=== PATIENT | female | born 1955 | race Hispanic/Latino ===

== ENCOUNTER 2020-05-17 12:07 | Outpatient (CLI) | payer MEDICARE, SELFPAY ==
[2020-05-17 12:53] LABS: Alanine Aminotransferase 24 U/L (4-35); Aspartate Amino Transferase 35 U/L (14-36)
== END 2020-05-17 12:08 | disposition home or self-care (01) ==
PROVIDERS: PCP Family Medicine; Visit Provider Podiatrist Foot & Ankle Surgery
DX: B35.1 Tinea unguium (principal)
CPT/HCPCS: 36415; 84450; 84460

== ENCOUNTER 2020-07-01 16:09 | Outpatient (CLI) | payer MEDICARE, SELFPAY ==
--- NOTE | ~2020-07-01 | XR_ITS ---
EXAMINATION: XR_CERV2-3V_CR DATE: 07/01/2020 16:36 INDICATION: Right neck pain. TECHNIQUE: 4 views of the cervical spine were obtained. COMPARISON: None. FINDINGS: Bone alignment is normal. Vertebral body height are normal. There is mildly decreased disc height at C4-C5, C5-C6, and C6-C7. There is multilevel mild facet joint osteoarthritis. No central ca nal stenosis or prevertebral soft tissue swelling. IMPRESSION: 1. Mild cervical spondylosis. Reviewed, dictated and finalized at location A.
== END 2020-07-01 16:10 | disposition home or self-care (01) ==
PROVIDERS: PCP Family Medicine; Visit Provider Physician Assistant
DX: M47.892 Other spondylosis, cervical region (principal)
CPT/HCPCS: 72040

== ENCOUNTER 2020-08-11 08:14 | Outpatient (CLI) | payer MEDICARE, SELFPAY ==
--- NOTE | ~2020-08-11 | DEXA_ITS ---
Bone Density Report Name: Renita Celeste Age: 65 Sex: Female Ethnicity: Date of : 1955 Indication: postmenopausal osteoporosis; monitoring treatment; height loss; hysterectomy; Referring Provider: Katy Beavers Study: Bone densitometry was performed. Exam Date: August 11, 2020 Accession number: [id number] Bone Density: Region BMD T-score Z-score Classification AP Spine (L1-L4) 0.723 -2.9 -1.0 Osteoporosis Femoral Neck (Left) 0.579 -2.4 -0.9 Osteopenia Total Hip (Left) 0.654 -2.4 -1.0 Osteopenia Total Hip Bilateral Avg 0.646 -2.5 -1.1 Osteoporosis Femoral Neck (Right) 0.606 -2.2 -0.7 Osteopenia Total Hip (Right) 0.637 -2.5 -1.2 Osteoporosis World Health Organization criteria for BMD impression classify patients as: Normal (T-score at or above -1.0), Osteopenia (T-score between -1.0 and -2.5), or Osteoporosis (T-score at or below -2.5). 10-year Fracture Risk: FRAX not reported because: Some T-score for Spine Total or Hip Total or Femoral Neck at or below -2.5 Treated for osteoporosis Previous Exams: Region Exam Age BMD T-score BMD Change BMD Change Date g/cm2 vs Baseline vs Previous AP Spine(L1-L4) 08/11/2020 65 0.723 -2.9 0.000(0.0%)# -0.053(-6.8%)# 10/02/2013 58 0.776 -2.5 0.052(7.3%)# 0.026(3.4%)* 06/11/2012 57 0.750 -2.7 0.027(3.7%)# 0.022(3.1%)# 05/05/2010 55 0.727 -2.9 0.004(0.6%) 0.004(0.6%) 02/03/2009 53 0.723 -2.9 Total Hip(Left) 08/11/2020 65 0.654 -2.4 0.009(1.5%)# -0.051(-7.3%)# 10/02/2013 58 0.705 -1.9 0.061(9.4%)# -0.009(-1.2%) 06/11/2012 57 0.714 -1.9 0.069(10.8%)# 0.067(10.4%)# 05/05/2010 55 0.647 -2.4 0.002(0.3%) 0.002(0.3%) 02/03/2009 53 0.645 -2.4 Total Hip(Right) 08/11/2020 65 0.637 -2.5 -0.014(-2.2%)# -0.081(-11.3%) 10/02/2013 58 0.718 -1.8 0.067(10.2%)# 0.017(2.4%) 06/11/2012 57 0.701 -2.0 0.049(7.6%)# 0.084(13.7%)# 05/05/2010 55 0.616 -2.7 -0.035(-5.4%)* -0.035(-5.4%)* 02/03/2009 53 0.651 -2.4 *Denotes significance at 95% confidence level, LSC for AP Spine = 0.022 g/cm2, LSC for Total Hip = 0.027 g/cm2 Clinical Information Provided by Patient: Is being treated for osteoporosis Has used the following medications: Prolia (i.e. denosumab) Has the following medical conditions: Hysterectomy Patient maximum height was 62.5 Menopause Age: 45 Onset of menses at age 14 Number of children 1
--- NOTE | ~2020-08-11 | MM_ITS ---
EXAMINATION: MM screening [facility] BI w rsoi HISTORY: Screening TECHNIQUE: Craniocaudal and mediolateral oblique 3-D tomosynthesis images were obtained and synthetic 2-D images were generated. CAD analysis was submitted and interpreted. COMPARISON: Comparison to multiple prior studies sequentially, with oldest reviewed study dated 06/20. BREAST PARENCHYMAL COMPOSITION: There are scattered areas of fibroglandular density. FINDINGS: There is no evidence of suspicious mass, calcification, or architectural distortion to sugg est malignancy in either breast. There has been no suspicious interval change. IMPRESSION: 1. No mammographic evidence of malignancy. 2. Recommend routine screening mammography in one year. BI-RADS Category 1: Negative Reviewed, dictated and finalized at location A.
== END 2020-08-11 08:15 | disposition home or self-care (01) ==
LOC: ANHIMG 08:16
PROVIDERS: PCP Internal Medicine Endocrinology, Diabetes & Metabolism; Visit Provider Internal Medicine Endocrinology, Diabetes & Metabolism
DX: Z12.31 Encounter for screening mammogram for malignant neoplasm of breast (principal); M81.0 Age-related osteoporosis without current pathological fracture; E03.9 Hypothyroidism, unspecified; Z78.0 Asymptomatic menopausal state
CPT/HCPCS: 77063; 77067; 77080

== ENCOUNTER → 2020-10-14 14:09 | Outpatient (CLI) | payer MEDICARE, SELFPAY ==
--- NOTE | ~2020-10-14 | MR_ITS ---
EXAMINATION: MR cervical spine wo [facility] EXAM DATE: 10/14/2020 14:44 INDICATION: neck pain neck pain TECHNIQUE: Multi-sequential, multiplanar MR images of the cervical spine were obtained without contra st. Axial T2, axial T2 MERGE sequence. Sagittal T1, T2, T2 fat saturation images also obtained. Th ere is no prior study for comparison. FINDINGS: Mild to moderate disc disease C4-7. The vertebral bodies are aligned in the AP dimension. The spinal cord signal intensity and intrinsic morphology is normal. Cervicomedullary junction is nor mal in appearance. There are no suspicious marrow signal abnormalities. Paraspinal soft tissue is unr emarkable. Level by level evaluation: C2-C3: Disc does not extend beyond the endplate margin. Uncovertebral joint arthropathy: None. Facet joint arthropathy: Mild to moderate left. Neural foraminal stenosis: No stenosis. Central canal stenosis: No stenosis. C3-C4: Disc does not extend beyond the endplate margin. Uncovertebral joint arthropathy: Mild left. Facet joint arthropathy: Mild to moderate bilateral. Neural foraminal stenosis: No stenosis. Central canal stenosis: No stenosis. C4-C5: There is a minimal diffuse disc bulge. Uncovertebral joint arthropathy: Minimal bilateral. Facet joint arthropathy: Mild to moderate bilateral. Neural foraminal stenosis: Mild bilateral. Central canal stenosis: Minimal. C5-C6: There is a minimal diffuse disc bulge. Uncovertebral joint arthropathy: Mild bilateral. Facet joint arthropathy: Mild to moderate bilateral. Neural foraminal stenosis: No stenosis. Central canal stenosis: Minimal. C6-C7: There is a mild diffuse disc bulge. Uncovertebral joint arthropathy: Mild bilateral. Facet joint arthropathy: Mild. Neural foraminal stenosis: No stenosis. Central canal stenosis: Minimal. C7-T1: Disc does not extend beyond the endplate margin. Uncovertebral joint arthropathy: None. Facet joint arthropathy: Mild bilateral. Neural foraminal stenosis: No stenosis. Central canal stenosis: No stenosis. IMPRESSION: 1. Mild to moderate cervical spondylosis. Reviewed, dictated and finalized at location A. T TECH
== END ==
PROVIDERS: PCP Family Medicine
DX: M89.8X1 Other specified disorders of bone, shoulder (principal); M47.892 Other spondylosis, cervical region
CPT/HCPCS: 72141

== ENCOUNTER 2021-11-28 15:52 | Outpatient (CLI) | payer MEDICARE, SELFPAY ==
--- NOTE | ~2021-11-28 | MM_ITS ---
EXAMINATION: MM screening [facility]iana BI w rosi HISTORY: Screening TECHNIQUE: Craniocaudal and mediolateral oblique 3-D tomosynthesis images were obtained and synthetic 2-D images were generated. CAD analysis was submitted and interpreted. COMPARISON: Comparison to multiple prior studies sequentially, with oldest reviewed study dated 06/20. BREAST PARENCHYMAL COMPOSITION: Breast composed of scattered areas of fibroglandular density. FINDINGS: There is no evidence of suspicious mass, calcification, or architectural distortion to sugg est malignancy in either breast. There has been no suspicious interval change. IMPRESSION: 1. No mammographic evidence of malignancy. 2. Recommend routine screening mammography in one year. BI-RADS Category 1: Negative Reviewed, dictated and finalized at location A. N MARKETER
== END 2021-11-28 15:53 | disposition home or self-care (01) ==
LOC: ANHIMG 15:53
PROVIDERS: PCP Family Medicine; Visit Provider Family Medicine
DX: Z12.31 Encounter for screening mammogram for malignant neoplasm of breast (principal)
CPT/HCPCS: 77063; 77067

== ENCOUNTER 2022-01-03 08:37 | Outpatient (CLI) | payer MEDICARE, SELFPAY ==
[2022-01-03 09:26] LABS: Hemoglobin 12.3 g/dL (12.0-15.0); Mean Corpuscular HGB Conc 34.2 g/dl (32-36); Mean Corpuscular Hemoglobin 31.2 pg (26-34); Mean Corpuscular Volume 91.4 fl (80-100); Mean Platelet Volume 9.7 fl (7.4-10.4); Platelet Count Result 237 k/mm3 (150-375); Red Blood Count 3.94 M/mm3 (4.2-5.4); Red Cell Distribution Width 12.4 % (11.5-14.5); White Blood Count 5.6 K/mm3 (4.5-10.0)
[2022-01-03 09:40] LABS: Alanine Aminotransferase 39 U/L (4-35); Albumin Level 4.3 g/dL (3.5-5.1); Alkaline Phosphatase 67 U/L (38-126); Anion Gap 6 mmol/L (8-16); Aspartate Amino Transferase 44 U/L (14-36); Blood Urea Nitrogen 14 mg/dL (7-17); Calcium 9.9 mg/dL (8.4-10.2); Carbon Dioxide 26 mmol/L (22-30); Chloride 102 mmol/L (98-107); Cholesterol 244 mg/dL (0-200); Estimated Glomerular Filt Rate > 60; Glucose 94 mg/dL (65-110); HDL Direct 54 mg/dL; Potassium 4.2 mmol/L (3.4-5.0); Sodium 134 mmol/L (137-145); Triglycerides 157 mg/dL (<150)
[2022-01-03 09:50] LABS: LDL Cholesterol Direct 133 mg/dL
[2022-01-03 10:59] LABS: Vitamin D 25 Hydroxy 45.4 ng/mL
[2022-01-03 11:13] LABS: Thyroid Stimulating Hormone Reflex 0.584 uIU/mL (0.465-4.68)
== END 2022-01-03 08:38 | disposition home or self-care (01) ==
LOC: ANHLAB 08:39
PROVIDERS: PCP Family Medicine; Visit Provider Family Medicine
DX: R53.83 Other fatigue (principal); E78.2 Mixed hyperlipidemia; E55.9 Vitamin D deficiency, unspecified
CPT/HCPCS: 36415; 80053; 80061; 82306; 84443; 85027

== ENCOUNTER 2022-01-11 08:14 | Outpatient (CLI) | payer MEDICARE, SELFPAY ==
--- NOTE | ~2022-01-11 | US_ITS ---
US abdomen limited INDICATION: Elevated liver enzymes PROCEDURE: Realtime right upper abdominal ultrasound. COMPARISON: No prior studies for comparison. FINDINGS: The pancreas is normal without focal mass or pancreatic ductal dilation. Liver echotexture is normal without focal mass or intrahepatic biliary dilatation. There is normal directional flow i n the portal vein. The gallbladder is normal without stones, gallbladder wall thickening or pericholecystic fluid. Comm on bile duct measures 6 mm. No sonographic Koehler's sign. IMPRESSION: 1: Normal limited abdominal ultrasound. Reviewed, dictated and finalized at location B.
== END 2022-01-11 08:15 | disposition home or self-care (01) ==
LOC: ANHIMG 08:15
PROVIDERS: PCP Family Medicine; Visit Provider Physician Assistant
DX: R79.89 Other specified abnormal findings of blood chemistry (principal)
CPT/HCPCS: 76705

== ENCOUNTER 2022-01-27 12:09 | Outpatient (CLI) | payer MEDICARE, SELFPAY ==
[2022-01-27 14:02] LABS: Free T4 Free Thyroxine 1.22 ng/mL (0.78-2.19)
== END 2022-01-27 12:10 | disposition home or self-care (01) ==
LOC: ANHLAB 12:12
PROVIDERS: PCP Family Medicine; Visit Provider Internal Medicine Endocrinology, Diabetes & Metabolism
DX: E03.9 Hypothyroidism, unspecified (principal)
CPT/HCPCS: 36415; 84439; 84443

== ENCOUNTER 2022-03-08 15:47 | Outpatient (CLI) | payer MEDICARE, SELFPAY ==
--- NOTE | ~2022-03-08 | MR_ITS ---
EXAMINATION: MR cervical spine wo con DATE: 03/08/2022 16:32 INDICATION: Neck pain. TECHNIQUE: Magnetic resonance imaging (MRI) of the cervical spine was performed without intravenous c ontrast. Sequences included sagittal T2-weighted FSE, sagittal T2-weighted FS FSE, sagittal T1-weight ed FSE, axial MERGE, and axial T2-weighted FSE. COMPARISON: Cervical spine MRI 10/14/2020 FINDINGS: Motion artifact is noted. Bone alignment is normal. Vertebral body heights are normal. Ther e is mildly decreased disc height at C3-C4 and moderately decreased disc height from C4-C5 through C6 -C7. The spinal cord signal intensity is normal. The following disc levels are specifically discussed : C2-C3: The disc does not extend beyond the endplate margin. There is no uncovertebral joint osteoarth ritis. There is mild bilateral facet joint osteoarthritis. There is no neural foraminal stenosis. The re is no central canal stenosis. C3-C4: There is a central extrusion. There is mild bilateral uncovertebral joint osteoarthritis. Ther e is mild right and severe left facet joint osteoarthritis. There is mild left neural foraminal steno sis. There is no central canal stenosis. C4-C5: The disc is bulging. There is moderate right and mild left uncovertebral joint osteoarthritis. There is severe right and mild left facet joint osteoarthritis. There is mild bilateral neural daphne inal stenosis. There is mild central canal stenosis. C5-C6: The disc is bulging. There is mild bilateral uncovertebral joint osteoarthritis. There is mode rate right and severe left facet joint osteoarthritis. There is mild left neural foraminal stenosis. There is mild central canal stenosis. C6-C7: The disc is bulging. There is mild right and moderate left uncovertebral joint osteoarthritis. There is moderate bilateral facet joint osteoarthritis. There is no neural foraminal stenosis. There is no central canal stenosis. C7-T1: The disc does not extend beyond the endplate margin. There is no uncovertebral joint osteoarth ritis. There is moderate right and severe left facet joint osteoarthritis. There is mild left neural foraminal stenosis. There is no central canal stenosis. IMPRESSION: 1. Moderate cervical spondylosis, stable from 10/14/2020. Reviewed, dictated and finalized at location A.
== END 2022-03-08 15:48 | disposition home or self-care (01) ==
PROVIDERS: PCP Family Medicine; Visit Provider Physical Medicine & Rehabilitation
DX: M47.892 Other spondylosis, cervical region (principal)
CPT/HCPCS: 72141

== ENCOUNTER → 2022-03-29 09:47 | Outpatient (CLI) | payer MEDICARE, SELFPAY ==
--- NOTE | ~2022-03-29 | XR_ITS ---
EXAMINATION: XR thoracic spine 3V DATE: 03/29/2022 10:01 INDICATION: Thoracic back pain TECHNIQUE: AP, lateral and lateral swimmer's views of the thoracic spine were obtained. COMPARISON: None. FINDINGS: Bone alignment is normal. There is no fracture. The vertebral body heights are maintained. There is mild loss of intervertebral disc space height in the mid and upper thoracic spine. The visua lized portions of the lungs are clear. The cardiomediastinal silhouette is normal. IMPRESSION: 1. Mild thoracic spondylosis without acute findings. Reviewed, dictated and finalized at location F.
== END ==
PROVIDERS: PCP Family Medicine; Visit Provider Physician Assistant
DX: M47.814 Spondylosis without myelopathy or radiculopathy, thoracic region (principal)
CPT/HCPCS: 72072

== ENCOUNTER 2022-08-15 09:03 | Outpatient (CLI) | payer MEDICARE, SELFPAY ==
--- NOTE | ~2022-08-15 | DEXA_ITS ---
Bone Density Report Name: GLORIA RAVI Age: 67 Sex: Female Ethnicity: Date of : 1955 Indication: postmenopausal osteoporosis; monitoring treatment; hysterectomy; Referring Provider: SHAZIA HAIR Study: Bone densitometry was performed. Exam Date: August 15, 2022 Accession number: [id number] Bone Density: Region BMD T-score Z-score Classification AP Spine(L1-L4) 0.738 -2.8 -0.7 Osteoporosis Femoral Neck (Left) 0.576 -2.5 -0.8 Osteoporosis Total Hip (Left) 0.648 -2.4 -0.9 Osteopenia Femoral Neck (Right) 0.609 -2.2 -0.5 Osteopenia Total Hip (Right) 0.656 -2.3 -0.9 Osteopenia Total Hip Mean 0.652 -2.4 -0.9 Osteopenia World Health Organization criteria for BMD impression classify patients as: Normal (T-score at or above -1.0), Osteopenia (T-score between -1.0 and -2.5), or Osteoporosis (T-score at or below -2.5). 10-year Fracture Risk: FRAX not reported because: Some T-score for Spine Total or Hip Total or Femoral Neck at or below -2.5 Treated for osteoporosis Previous Exams: Region Exam Age BMD T-score BMD Change BMD Change Date g/cm2 vs Baseline vs Previous AP Spine (L1-L4) 08/15/2022 67 0.738 -2.8 0.015 (2.1%) 0.015 (2.1%) 08/11/2020 65 0.723 -2.9 Total Hip(Left) 08/15/2022 67 0.648 -2.4 -0.006 (-0.9%) -0.006 (-0.9%) 08/11/2020 65 0.654 -2.4 Total Hip(Right) 08/15/2022 67 0.656 -2.3 0.019 (3.0%) 0.019 (3.0%) 08/11/2020 65 0.637 -2.5 *Denotes significance at 95% confidence level, LSC for AP Spine = 0.022 g/cm2, LSC for Total Hip = 0.027 g/cm2 Clinical Information Provided by Patient: Is being treated for osteoporosis Has used the following medications: Prolia (i.e. denosumab) Has the following medical conditions: Hysterectomy Patient maximum height was 62 Menopause Age: 45 Onset of menses at age 14 Number of children 1 Impression: The patient has osteoporosis, based on the Total Spine T-score. No significant bone loss was observed. Discussion: PATIENT UNDER TREATMENT WITH NO SIGNIFICANT BMD LOSS SINCE LAST EXAM. In an untreated patient, BMD typically declines with age. A lack of decline or gain is usually a sign that treatment is efficacious and fracture risk is reduced. It is important to ask patients whether they are taking their medications and to encourage continued and appropriate compliance with their osteoporosis therapies to reduce fracture risk. It is also important to r
== END 2022-08-15 09:04 | disposition home or self-care (01) ==
PROVIDERS: PCP Family Medicine; Visit Provider Internal Medicine Endocrinology, Diabetes & Metabolism
DX: M81.0 Age-related osteoporosis without current pathological fracture (principal); M85.852 Other specified disorders of bone density and structure, left thigh; M85.851 Other specified disorders of bone density and structure, right thigh
CPT/HCPCS: 77080

== ENCOUNTER 2023-03-08 07:59 | Outpatient (CLI) | payer MEDICARE, SELFPAY ==
[2023-03-08 08:53] LABS: Alanine Aminotransferase 24 U/L (6-35); Albumin Level 4.5 g/dL (3.5-5.1); Alkaline Phosphatase 73 U/L (38-126); Anion Gap 4 mmol/L (8-16); Aspartate Amino Transferase 36 U/L (14-36); Bilirubin,Total 0.9 mg/dL (0.2-1.3); Blood Urea Nitrogen 20 mg/dL (7-17); Carbon Dioxide 28 mmol/L (22-30); Chloride 102 mmol/L (98-107); Cholesterol 251 mg/dL (0-200); Estimated Glomerular Filt Rate > 60; Glucose 90 mg/dL (65-110); HDL Direct 63 mg/dL; Potassium 3.9 mmol/L (3.4-5.0); Sodium 134 mmol/L (137-145); Triglycerides 116 mg/dL (<150)
[2023-03-08 08:59] LABS: Hemoglobin 12.5 g/dL (12.0-15.0); Mean Corpuscular HGB Conc 33.8 g/dl (32-36); Mean Corpuscular Hemoglobin 30.6 pg (26-34); Mean Corpuscular Volume 90.5 fl (80-100); Mean Platelet Volume 9.6 fl (7.4-10.4); Platelet Count Result 264 k/mm3 (150-375); Red Blood Count 4.09 M/mm3 (4.2-5.4); Red Cell Distribution Width 12.4 % (11.5-14.5); White Blood Count 5.1 K/mm3 (4.5-10.0)
[2023-03-08 09:06] LABS: LDL Cholesterol Direct 141 mg/dL
== END 2023-03-08 08:00 | disposition home or self-care (01) ==
PROVIDERS: PCP Family Medicine; Visit Provider Family Medicine
DX: R53.83 Other fatigue (principal); E78.2 Mixed hyperlipidemia; E03.9 Hypothyroidism, unspecified; E55.9 Vitamin D deficiency, unspecified
CPT/HCPCS: 36415; 80053; 80061; 82306; 84443; 85027

== ENCOUNTER 2023-03-20 08:47 | Outpatient (CLI) | payer MEDICARE, SELFPAY ==
--- NOTE | ~2023-03-20 | MM_ITS ---
EXAMINATION: MM screening [facility] BI w rosi HISTORY: Screening mammogram TECHNIQUE: Craniocaudal and mediolateral oblique 3-D tomosynthesis images were obtained and synthetic 2-D images were generated. CAD analysis was submitted and interpreted. COMPARISON: 11/28/2021, 08/11/2020, 07/15/2019 BREAST PARENCHYMAL COMPOSITION: There are scattered areas of fibroglandular density. FINDINGS: No suspicious mass, calcification, or architectural distortion are identified in either lexy ast to suggest malignancy. There has been no suspicious interval change. IMPRESSION: 1. No mammographic evidence of malignancy. 2. Recommend routine screening mammography in one year. BI-RADS Category 1: Negative Reviewed, dictated and finalized at location A.
== END 2023-03-20 08:48 | disposition home or self-care (01) ==
PROVIDERS: PCP Family Medicine; Visit Provider Family Medicine
DX: Z12.31 Encounter for screening mammogram for malignant neoplasm of breast (principal)
CPT/HCPCS: 77063; 77067

== ENCOUNTER 2024-03-13 07:39 | Outpatient (CLI) | payer MEDICARE, SELFPAY ==
[2024-03-13 09:11] LABS: Basophils Absolute Auto 0.1 K/mm3 (0.0-0.1); Basophils Percent Auto 1.4 % (0.2-1.2); Eosinophils Absolute Auto 0.2 K/mm3 (0-0.3); Eosinophils Percent Auto 3.6 % (0-4.4); Hematocrit 38.2 % (37.0-47.0); Hemoglobin 12.9 g/dL (12.0-15.0); Immature Granulocyte Absolute 0.01 K/mm3 (0.00-0.031); Immature Granulocyte Percent A 0.2 % (0-0.5); Lymphocytes Absolute Auto 2.83 K/mm3 (0.9-3.2); Lymphocytes Percent Auto 48.8 % (18.3-44.2); Mean Corpuscular HGB Conc 33.8 g/dl (32-36); Mean Corpuscular Hemoglobin 30.2 pg (26-34); Mean Corpuscular Volume 89.5 fl (80-100); Mean Platelet Volume 10.3 fl (7.4-10.4); Monocytes Absolute Auto 0.4 K/mm3 (0.1-0.6); Monocytes Percent Auto 7.2 % (2.6-8.5); Neutrophils Absolute Auto 2.3 K/mm3 (1.3-6.7); Neutrophils Percent Auto 38.8 % (45.5-73.1); Platelet Count Result 263 k/mm3 (150-375); Red Blood Count 4.27 M/mm3 (4.2-5.4); Red Cell Distribution Width 12.6 % (11.5-14.5); White Blood Count 5.8 K/mm3 (4.5-10.0)
[2024-03-13 09:25] LABS: Alanine Aminotransferase 20 U/L (6-35); Albumin Level 4.4 g/dL (3.5-5.1); Alkaline Phosphatase 74 U/L (38-126); Anion Gap 4 mmol/L (4-12); Aspartate Amino Transferase 35 U/L (14-36); Bilirubin,Total 1.1 mg/dL (0.2-1.3); Blood Urea Nitrogen 15 mg/dL (7-17); Calcium 10.1 mg/dL (8.4-10.2); Carbon Dioxide 28 mmol/L (22-30); Chloride 101 mmol/L (98-107); Cholesterol 230 mg/dL (0-200); Estimated Glomerular Filt Rate > 60; Glucose 89 mg/dL (65-110); HDL Direct 60 mg/dL; Sodium 133 mmol/L (137-145); Triglycerides 133 mg/dL (<150)
[2024-03-13 09:36] LABS: LDL Cholesterol Direct 135 mg/dL
== END 2024-03-13 07:40 | disposition home or self-care (01) ==
PROVIDERS: PCP Family Medicine; Visit Provider Family Medicine
DX: R53.83 Other fatigue (principal); E78.2 Mixed hyperlipidemia; Z00.00 Encounter for general adult medical examination without abnormal findings; M81.0 Age-related osteoporosis without current pathological fracture
CPT/HCPCS: 36415; 80053; 80061; 84443; 85025

== ENCOUNTER 2024-03-14 14:27 | Outpatient (CLI) | payer MEDICARE, SELFPAY ==
--- NOTE | ~2024-03-14 | XR_ITS ---
EXAMINATION: XR lumbar spine min 4V DATE: 03/14/2024 14:57 INDICATION: Left-sided low back pain. TECHNIQUE: 5 views of lumbar spine were obtained. COMPARISON: Lumbar spine radiographs 05/23/2018 FINDINGS: There is 6 degrees dextrocurvature of lumbar spine. Vertebral body heights are normal. Ther e is mildly decreased disc height at L2-L3 and L3-L4 with endplate remodeling. There is multilevel mi ld facet joint osteoarthritis. At L5-S1, there is severe right facet joint osteoarthritis. IMPRESSION: 1. Mild lumbar spondylosis. Reviewed, dictated and finalized at location E. IMPRESSION: 1. Mild lumbar spondylosis.
--- NOTE | ~2024-03-14 | XR_ITS ---
EXAMINATION: XR sacroiliac joints min 3V DATE: 03/14/2024 14:57 INDICATION: Sacrococcygeal disorders, not elsewhere classified. TECHNIQUE: 3 views of the sacroiliac joints were obtained. COMPARISON: Pelvis radiograph 10/20/2016 FINDINGS: Bone alignment is normal. No fracture. There is moderate right and mild left osteoarthritis of the sacroiliac joints. IMPRESSION: 1. 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 No evidence of inflammatory arthropathy. Reviewed, dictated and finalized at location E. IMPRESSION: 1. 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 No stephanie dence of inflammatory arthropathy.
== END 2024-03-14 14:28 | disposition home or self-care (01) ==
PROVIDERS: PCP Family Medicine; Visit Provider Family Medicine
DX: M43.06 Spondylolysis, lumbar region (principal); M53.3 Sacrococcygeal disorders, not elsewhere classified; G89.29 Other chronic pain
CPT/HCPCS: 72110; 72202

== ENCOUNTER 2024-05-26 15:00 | Outpatient (CLI) | payer MEDICARE, SELFPAY ==
--- NOTE | ~2024-05-26 | XR_ITS ---
EXAMINATION:XR cervical spine 4-5V DATE: 05/26/2024 15:18 INDICATION: One month of right-sided neck pain TECHNIQUE: AP, lateral, lateral swimmers and odontoid views of the cervical spine are provided. COMPARISON: 03/08/2022 FINDINGS: 1-2 mm anterolisthesis C4 on C5 and 1 mm anterolisthesis C7 on T1. Odontoid is intact. Normal atlant oaxial interval. Vertebral body heights are normal. Mild disc height loss at C3-C4 and C4-C5 and mode rate disc height loss at C5-C6 and C6-7. Mild to moderate cervical facet and uncovertebral osteoarthr itis. Prevertebral soft tissues are normal. Moderate biapical pleural-parenchymal scarring. IMPRESSION: 1. Moderate cervical spondylosis. Reviewed, dictated and finalized at location A.
== END 2024-05-26 15:01 ==
PROVIDERS: PCP Chiropractor; Visit Provider Family Medicine
DX: M47.892 Other spondylosis, cervical region (principal)
CPT/HCPCS: 72050

== ENCOUNTER 2024-06-14 07:28 | Outpatient (CLI) | payer MEDICARE, SELFPAY ==
[2024-06-14 08:00] LABS: Albumin Level 4.3 g/dL (3.5-5.1); Anion Gap 7 mmol/L (4-12); Blood Urea Nitrogen 16 mg/dL (7-17); Calcium 10.2 mg/dL (8.4-10.2); Carbon Dioxide 28 mmol/L (22-30); Chloride 98 mmol/L (98-107); Estimated Glomerular Filt Rate > 60; Glucose 92 mg/dL (65-110); Phosphorus 3.5 mg/dL (2.5-4.5); Potassium 4.1 mmol/L (3.4-5.0); Sodium 133 mmol/L (137-145)
[2024-06-14 09:53] LABS: Parathyroid Intact 38.7 pg/mL (14.5-75.2)
[2024-06-14 09:57] LABS: Vitamin D 25 Hydroxy 39.7 ng/mL
== END 2024-06-14 07:29 | disposition home or self-care (01) ==
PROVIDERS: PCP Family Medicine; Visit Provider Internal Medicine Endocrinology, Diabetes & Metabolism
DX: E03.9 Hypothyroidism, unspecified (principal); M81.0 Age-related osteoporosis without current pathological fracture; R79.89 Other specified abnormal findings of blood chemistry
CPT/HCPCS: 36415; 80069; 82306; 83970

== ENCOUNTER 2024-06-20 10:19 | Outpatient (CLI) | payer MEDICARE, SELFPAY ==
[2024-06-20 12:16] LABS: Total Volume 24 Hour Urine 1700 ml
[2024-06-20 12:26] LABS: Creatinine 24 Hour Urine 0.9 gm/24 (0.8-1.8); Creatinine Urine 57.1 mg/dL
[2024-06-24 11:04] LABS: Total Volume 1700 mL
== END 2024-06-20 10:20 | disposition home or self-care (01) ==
LOC: ANHLAB 10:25
PROVIDERS: PCP Family Medicine; Visit Provider Internal Medicine Endocrinology, Diabetes & Metabolism
DX: M81.0 Age-related osteoporosis without current pathological fracture (principal); R79.89 Other specified abnormal findings of blood chemistry; E03.9 Hypothyroidism, unspecified
CPT/HCPCS: 81050; 82340; 82570

== ENCOUNTER 2024-08-07 12:22 | Outpatient (CLI) | payer MEDICARE, SELFPAY ==
--- NOTE | ~2024-08-07 | XR_ITS ---
Right Shoulder Technique: AP and axillary views were obtained. Clinical History: Shoulder pain Findings: No fracture or dislocation is seen. Osseous alignment is anatomic. The glenohumeral and acr omioclavicular joint spaces are preserved. Soft tissues are unremarkable. Impression: Unremarkable right shoulder radiographs. Reviewed, dictated and finalized at [facility]. Impression: Unremarkable right shoulder radiographs.
== END 2024-08-07 12:23 | disposition home or self-care (01) ==
LOC: ANHIMG 12:24
PROVIDERS: PCP Family Medicine; Visit Provider Physical Medicine & Rehabilitation Pain Medicine
DX: M25.511 Pain in right shoulder (principal)
CPT/HCPCS: 73030

== ENCOUNTER 2024-08-25 09:26 | Outpatient (CLI) | payer MEDICARE, SELFPAY ==
--- NOTE | ~2024-08-25 | DEXA_ITS ---
Bone Density Report Name: GLORIA RAVI Age: 69 Sex: Female Ethnicity: Date of : 1955 Indication: postmenopausal osteoporosis; monitoring treatment; hysterectomy; Referring Provider: FATOU PEGUERO Study: Bone densitometry was performed. Exam Date: August 25, 2024 Accession number: [id number] Bone Density: Region BMD T-score Z-score Classification AP Spine(L1-L4) 0.740 -2.8 -0.6 Osteoporosis Femoral Neck (Left) 0.567 -2.5 -0.8 Osteoporosis Total Hip (Left) 0.649 -2.4 -0.8 Osteopenia Femoral Neck (Right) 0.609 -2.2 -0.4 Osteopenia Total Hip (Right) 0.655 -2.4 -0.7 Osteopenia Total Hip Mean 0.652 -2.4 -0.8 Osteopenia World Health Organization criteria for BMD impression classify patients as: Normal (T-score at or above -1.0), Osteopenia (T-score between -1.0 and -2.5), or Osteoporosis (T-score at or below -2.5). 10-year Fracture Risk: FRAX not reported because: Some T-score for Spine Total or Hip Total or Femoral Neck at or below -2.5 Treated for osteoporosis Previous Exams: Region Exam Age BMD T-score BMD Change BMD Change Date g/cm2 vs Baseline vs Previous AP Spine (L1-L4) 08/25/2024 69 0.740 -2.8 0.018 (2.4%) 0.003 (0.4%) 08/15/2022 67 0.738 -2.8 0.015 (2.1%) 0.015 (2.1%) 08/11/2020 65 0.723 -2.9 Total Hip(Left) 08/25/2024 69 0.649 -2.4 -0.005 (-0.8%) 0.001 (0.1%) 08/15/2022 67 0.648 -2.4 -0.006 (-0.9%) -0.006 (-0.9%) 08/11/2020 65 0.654 -2.4 Total Hip(Right) 08/25/2024 69 0.655 -2.4 0.018 (2.8%) -0.002 (-0.3%) 08/15/2022 67 0.656 -2.3 0.019 (3.0%) 0.019 (3.0%) 08/11/2020 65 0.637 -2.5 *Denotes significance at 95% confidence level, LSC for AP Spine = 0.022 g/cm2, LSC for Total Hip = 0.027 g/cm2 Clinical Information Provided by Patient: Is being treated for osteoporosis Has used the following medications: Prolia (i.e. denosumab) Has the following medical conditions: Hysterectomy Patient maximum height was 62 Menopause Age: 45 Onset of menses at age 14 Number of children 1 Impression: The patient has osteoporosis, based on the Total Spine T-score. No significant bone loss was observed. Discussion: PATIENT UNDER TREATMENT WITH NO SIGNIFICANT BMD LOSS SINCE LAST EXAM. In an untreated patient, BMD typically declines with age. A lack of decline or gain is usually a sign that treatment is efficacious and fracture risk is reduced. It is important to ask patients whether they are taking their medications and to encourage continued and appropriate compliance with their osteoporosis therapies to reduce fracture risk. It is also important to review their risk factors and encourage appropriate calcium and vitamin D intakes, exercise, fall prevention and other lifestyle measures. Follow-Up: Consider a repeat BMD and Vertebral Fracture Assessment (VFA) exam in 2 years or sooner if medically necessary, to reassess this patient's status. Reported by: HELEN on 08/25/2024 10:01:00 AM. Reviewed, dictated and finalized at location ABernadine COREY
== END 2024-08-25 09:27 | disposition home or self-care (01) ==
LOC: ANHIMG 09:35
PROVIDERS: PCP Family Medicine; Visit Provider Internal Medicine Endocrinology, Diabetes & Metabolism
DX: Z78.0 Asymptomatic menopausal state (principal); M81.0 Age-related osteoporosis without current pathological fracture; M85.852 Other specified disorders of bone density and structure, left thigh; M85.851 Other specified disorders of bone density and structure, right thigh
CPT/HCPCS: 77080

== ENCOUNTER 2024-08-28 14:21 | Outpatient (CLI) | payer MEDICARE, SELFPAY ==
--- NOTE | ~2024-08-28 | MM_ITS ---
EXAMINATION: MM screening [facility] BI w rosi HISTORY: Screening mammogram TECHNIQUE: Craniocaudal and mediolateral oblique 3-D tomosynthesis images were obtained and synthetic 2-D images were generated. CAD analysis was submitted and interpreted. COMPARISON: 03/20/2023, 11/28/2021, 08/11/2020 BREAST PARENCHYMAL COMPOSITION:Dense: The breasts are heterogeneously dense, which may obscure small masses. FINDINGS: No suspicious mass, calcification, or architectural distortion are identified in either lexy ast to suggest malignancy. There has been no suspicious interval change. IMPRESSION: No mammographic evidence of malignancy. Recommend routine screening mammography in one year. BI-RADS Category 1: Negative Reviewed, dictated and finalized at location .
== END 2024-08-28 14:22 | disposition home or self-care (01) ==
LOC: ANHIMG 14:22
PROVIDERS: PCP Family Medicine; Visit Provider Family Medicine
DX: Z12.31 Encounter for screening mammogram for malignant neoplasm of breast (principal)
CPT/HCPCS: 77063; 77067

== ENCOUNTER 2024-09-16 13:43 | Outpatient (CLI) | payer MEDICARE, SELFPAY ==
--- NOTE | ~2024-09-16 | MR_ITS ---
EXAMINATION: MR cervical spine wo con DATE: 09/16/2024 14:13 INDICATION: Neck pain. Spinal stenosis. TECHNIQUE: Magnetic resonance imaging (MRI) of the cervical spine was performed without intravenous c ontrast. COMPARISON: Cervical spine MRI 03/08/2022 FINDINGS: There is 2 mm anterolisthesis of C4 on C5. Vertebral body heights are normal. There is mild ly decreased disc height at C3-C4 and moderately decreased disc height at C4-C5, C5-C6, and C6-C7. Th e spinal cord signal intensity is normal. The following disc levels are specifically discussed: C2-C3: The disc does not extend beyond the endplate margin. There is no uncovertebral joint osteoarth ritis. There is mild right and moderate left facet joint osteoarthritis. There is no neural foraminal stenosis. There is no central canal stenosis. C3-C4: There is a central protrusion. There is mild bilateral uncovertebral joint osteoarthritis. The re is mild right and severe left facet joint osteoarthritis. There is mild left neural foraminal sten osis. There is no central canal stenosis. C4-C5: There is a central protrusion. There is moderate right and mild left uncovertebral joint osteo arthritis. There is severe right and moderate left facet joint osteoarthritis. There is mild right ne ural foraminal stenosis. There is mild central canal stenosis. C5-C6: The disc is bulging. There is mild right and moderate left uncovertebral joint osteoarthritis. There is mild right and severe left facet joint osteoarthritis. There is mild left neural foraminal stenosis. There is mild central canal stenosis. C6-C7: There is a central protrusion. There is moderate bilateral uncovertebral joint osteoarthritis. There is moderate bilateral facet joint osteoarthritis. There is no neural foraminal stenosis. There is mild central canal stenosis. C7-T1: The disc does not extend beyond the endplate margin. There is no uncovertebral joint osteoarth ritis. There is severe bilateral facet joint osteoarthritis. There is mild bilateral neural foraminal stenosis. There is no central canal stenosis. IMPRESSION: 1. Moderate cervical spondylosis, stable from 03/08/2022. Reviewed, dictated and finalized at location A. DOWN PLANNER
== END 2024-09-16 13:44 | disposition home or self-care (01) ==
LOC: GOSHIMG 13:43
PROVIDERS: PCP Family Medicine; Visit Provider Physical Medicine & Rehabilitation Pain Medicine
DX: M48.00 Spinal stenosis, site unspecified (principal); M47.892 Other spondylosis, cervical region
CPT/HCPCS: 72141

== ENCOUNTER 2025-04-03 08:58 | Outpatient (CLI) | payer MEDICARE, SELFPAY ==
--- OUTSIDE RECORDS SUMMARY | 2025-04-03 09:02 | XMS_ITS | Clinical Summary ---
Author Organization [facility] Physician Office Building [address] [place] [id number] Care Team Providers Care Mobile Application Developer Name Role Phone Cindi Ortiz MD Primary Care Provider [phone] Allergies No known active allergies Medications levothyroxine sodium (TIROSINT) 25 mcg capsule Take 25 mcg by mouth manager facility before breakfast. Active denosumab (PROLIA SUBQ) Inject under the skin Active citalopram (CeleXA) 40 mg tablet Take 40 mg by mouth daily Active omega-3 fatty acids-fish oil 300-1,000 mg capsule Take 2 g by mouth daily Active celecoxib (CeleBREX) 100 mg capsule Take 1 BID 60 capsule 07/21/2020 Active tiZANidine (ZANAFLEX) 2 mg tablet Take 1 every 8 hours PRN 45 tablet 07/21/2020 Active gabapentin (NEURONTIN) 300 mg capsule Take 1 at HS 30 capsule 11/04/2020 Active Active Problems Problem Noted Date Diagnosed Date Hematochezia 02/28/2019 Overview (02/28/2019): Added automatically from request for surgery [id number] Epigastric abdominal pain 02/28/2019 Overview (02/28/2019): Added automatically from request for surgery [id number] Surgical History Surgery Date Site/Laterality Comments CT LAPS ABD PRTM&OMENTUM DX W/WO SPEC BR/WA SPX Laparoscopy (Diagnostic) - 1990s (Added by TW Conv) ROTATOR CUFF REPAIR Rotator Cuff Repair - RIGHT (Added by TW Conv) TOTAL ABDOMINAL HYSTERECTOMY Total Abdominal Hysterectomy With Removal Of Both Ovaries - 04/2016 (Added by TW Conv) IR INJECTION ARTHROGRAM SI JOINT LEFT INCLUDES IMAGING GUIDANCE 12/24/2018 Left Medical History Medical History Date Comments 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, right - (Added by TW Conv) Anemia Anxiety Arthritis ADD (attention deficit disorder) Thyroid disease Hypothyroidism Family History Medical History Relation Name Comments Mental illness Daughter Epilepsy Father Family history of epilepsy - (Added by TW Conv) Mental illness Father Arthritis Mother Thyroid cancer Sister Family histor y of malignant neoplasm of thyroid - (Added by TW Conv) Relation Name Status Comments Daughter Father Mother Sister Social History Tobacco Use Types Packs/Day Years Used Date Smoking Tobacco: Never Smokeless Tobacco: Never Alcohol Use Standard Drinks/Week Comments Yes 0 (1 standard drink = 0.6 oz pur e alcohol) Comments No Sex and Gender Information Value Date Recorded Sex Assigned at Not on file 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 Gender Identity Not on file Sexual Orientation Not on file Occupation Industry Job Start Date Job End Date Teacher Not on file Not on file Not on file Obstetrics History Last Filed Vital Signs Vital Sign Reading Time Taken Comments Blood Pressure 98/58 04/15/2019 10:49 AM CDT Pulse 63 04/15/2019 10:49 AM CDT Temperature 36 C (96.8 F) 04/15/2019 10:16 AM CDT Respiratory Rate 15 04/15/2019 10:49 AM CDT Oxygen Saturation 94% 04/15/2019 10:49 AM CDT Inhaled Oxygen Concentration - - Weight 52.2 kg (115 lb) 07/21/2020 12:01 PM CDT Height 152.4 cm (5') 07/21/2020 12:01 PM CDT Body Mass Index 22.46 07/21/2020 12:01 PM CDT Plan of Treatment Not on file Insurance ADELAIDAAMALIA [employer]ICOTT PPO [facility] MDCR HMO REF [facility] MEDICARE Address: [address] [address] [place] [address] [facility] MEDICARE ADVANTAGE [facility] MEDICARE Address: [address] [address] [place] [address] Advance Directives For more information, please contact: [phone] * Full Code (Latest Code Status on File) Date Activated Date Inactivated Comments 04/15/2019 8:08 AM 04/15/2019 4:35 PM Care Teams Mobile Application Developer Relationship Specialty Start Date End Date Cindi Ortiz MD PCP - General Family Medicine 05/21/17
--- OUTSIDE RECORDS SUMMARY | 2025-04-03 09:02 | XMS_ITS | Referral Summary ---
Author Organization [facility] Physician Office Building [address] [place] [phone] Care Team Providers Care High Density Press Operator Name Role Phone Cindi Ortiz MD Primary Care Provider [phone] Allergies No known active allergies Medications levothyroxine sodium (TIROSINT) 25 mcg capsule Take 25 mcg by mouth dairy husbandry worker before breakfast. 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 Gender Identity Not on file Sexual Orientation Not on file Occupation Industry Job Start Date Job End Date Teacher Not on file Not on file Not on file Last Filed Vital Signs Vital Sign Reading [...] Plan of Treatment Not on file Insurance [employer] [place] PPO [facility] RE[facility] MEDICARE ADVANTAGE Advance Directives For more information, please contact: [phone] * Full Code (Latest Code Status on File) Date Activated Date Inactivated Comments 04/15/2019 8:08 AM 04/15/2019 4:35 PM Care Teams High Density Press Operator Relationship Specialty Start Date End Date Cindi Ortiz MD PCP - General Family Medicine 05/21/17
--- OUTSIDE RECORDS SUMMARY | 2025-04-03 09:02 | XMS_ITS | Clinical Summary ---
Author Organization [facility] Address [address] [place] [address] Care Team Providers Care School Psychological Examiner Name Role Phone Cindi Ortiz MD Primary Care Provider [phone] Source Comments [facility],non-owned Affiliates and Associated Physician Practices is amultiple site organization consisting of ambulatory clinics and hospital sitesin [place], [place], [place] and [place]. This disclosure is being madepursuant to the Care Everywhere program and may not contain all information available regarding this patient. Last updated 18.[facility] Allergies No known active allergies Medications * Be aware that medications may not be up to date on this document. Alwaysverify current medications with the patient. fluticasone propionate (FLONASE) 50 MCG/ACT nasal spray [place] 2 (two) sprays into each nostril once daily 1 g 12/17/2020 Active Social History Tobacco Use Types Packs/Day Years Used Date Smoking Tobacco: Never Smokeless Tobacco: Never Comments Unknown Sex and Gender Information Value Date Recorded Sex Assigned at Not on file Legal Sex Female 5:48 PM SOAP MIXER Gender Identity Not on file Sexual Orientation Not on file Last Filed Vital Signs Vital Sign Reading Time Taken Comments Blood Pressure 98/54 12/17/2020 4:59 PM SOAP MIXER Pulse 66 12/17/2020 4:59 PM SOAP MIXER Temperature 36.4 C (97.6 F) 12/17/2020 4:59 PM SOAP MIXER Respiratory Rate 16 12/17/2020 4:59 PM SOAP MIXER Oxygen Saturation 98% 12/17/2020 4:59 PM SOAP MIXER Inhaled Oxygen Concentration - - Weight 45.4 kg (100 lb) 12/17/2020 4:59 PM SOAP MIXER Height 149.9 cm (4' 11) 12/17/2020 4:59 PM SOAP MIXER Body Mass Index 20.2 12/17/2020 4:59 PM SOAP MIXER Plan of Treatment Health Maintenance Due Date Last Done Comments BONE DENSITY TESTING 1953 COLOGUARD (AGES 45-75) - COL ON CA SCREENING 1953 COLON MONITORING 1953 COLONOSCOPY - COLON CA SCREENING 1953 CT COLONOGRAPHY - COLON CA SCREENING 1953 Colorectal Cancer Screening 1955 FIT - COLON CA SCREENING 1953 FLEX SIG - COLON CA SCREENING 1953 LIPID TESTING 1953 MAMMOGRAM 1953 HEPATITIS C SCREENING 03/31/1971 DTAP/TDAP/TD VACCINES (1 - Tdap) 1972 PNEUMOCOCCAL VACCINE 50+ (1 of 1 - PCV) 2003 ZOSTER VACCINE (1 of 2) 2003 COVID-19 VACCINE (3 - 2023-2 5 season) 2024 01/19/2021, 12/28/2020 DEPRESSION SCREENING 10/29/2024 INFLUENZA VACCINE (Season Ended) 2025 08/17/2020, 09/05/2017, 09/03/2014 Respiratory Syncytial Virus (RSV) Vaccine Pt: or over 60 yrs (1 - 1-dose 75+ series) 2028 HEPATITIS B VACCINE Aged Out No longe r eligible based on patient's age to complete this topic HIB VACCINE Aged Out No longer eligi ble based on patient's age to complete this topic HPV VACCINE Aged Out No longer eligi ble based on patient's age to complete this topic MENINGOCOCCAL (Group B) VACCINE SHARED DECISION-MAKING Aged Out No longer eligible based on patient's age to complete this topic MENINGOCOCCAL GROUPS A/C/Y/W VACCINE Aged Out No longer eligible b ased on patient's age to complete this topic Insurance [id number] MANAGED MEDICARE ADV Care Teams School Psychological Examiner Relationship Specialty Start Date End Date Cindi Ortiz MD [address] [place] [address] PCP - General Family Medicine 12/17/20
[2025-04-03 12:12] LABS: Basophils Absolute Auto 0.1 K/mm3 (0.0-0.1); Basophils Percent Auto 1.6 % (0.2-1.2); Eosinophils Absolute Auto 0.3 K/mm3 (0-0.3); Eosinophils Percent Auto 4.7 % (0-4.4); Hematocrit 38.4 % (37.0-47.0); Hemoglobin 12.7 g/dL (12.0-15.0); Immature Granulocyte Absolute 0.01 K/mm3 (0.00-0.031); Immature Granulocyte Percent A 0.2 % (0-0.5); Lymphocytes Absolute Auto 2.89 K/mm3 (0.9-3.2); Lymphocytes Percent Auto 49.9 % (18.3-44.2); Mean Corpuscular HGB Conc 33.1 g/dl (32-36); Mean Corpuscular Hemoglobin 29.7 pg (26-34); Mean Corpuscular Volume 89.9 fl (80-100); Monocytes Absolute Auto 0.4 K/mm3 (0.1-0.6); Monocytes Percent Auto 7.1 % (2.6-8.5); Neutrophils Absolute Auto 2.1 K/mm3 (1.3-6.7); Neutrophils Percent Auto 36.5 % (45.5-73.1); Platelet Count Result 288 k/mm3 (150-375); Red Blood Count 4.27 M/mm3 (4.2-5.4); Red Cell Distribution Width 12.7 % (11.5-14.5); White Blood Count 5.8 K/mm3 (4.5-10.0)
[2025-04-03 12:36] LABS: Alanine Aminotransferase 21 U/L (6-35); Albumin Level 4.3 g/dL (3.5-5.1); Alkaline Phosphatase 68 U/L (38-126); Anion Gap 7 mmol/L (4-12); Aspartate Amino Transferase 64 U/L (14-36); Bilirubin,Total 1.1 mg/dL (0.2-1.3); Blood Urea Nitrogen 17 mg/dL (7-17); Calcium 10.5 mg/dL (8.4-10.2); Carbon Dioxide 26 mmol/L (22-30); Chloride 100 mmol/L (98-107); Cholesterol 260 mg/dL (0-200); Estimated Glomerular Filt Rate > 60; Glucose 88 mg/dL (65-110); HDL Direct 63 mg/dL; Potassium 4.3 mmol/L (3.4-5.0); Sodium 133 mmol/L (137-145); Total Protein 7.7 g/dL (6.3-8.2); Triglycerides 132 mg/dL (<150)
[2025-04-03 12:47] LABS: LDL Cholesterol Direct 135 mg/dL
== END 2025-04-03 08:59 | disposition home or self-care (01) ==
LOC: ANHGOSHLAB 08:59
PROVIDERS: PCP Family Medicine; Visit Provider Family Medicine
DX: E78.2 Mixed hyperlipidemia (principal); Z00.00 Encounter for general adult medical examination without abnormal findings; R53.83 Other fatigue
CPT/HCPCS: 36415; 80053; 80061; 85025

== ENCOUNTER 2025-08-04 12:42 | Outpatient (CLI) | payer MEDICARE, SELFPAY ==
--- OUTSIDE RECORDS SUMMARY | 2025-08-04 13:28 | XMS_ITS | Clinical Summary ---
Author Organization [facility] Address [address] [place] [address] Care Team Providers Care Online Project Manager Name Role Phone Cindi Ortiz MD Primary Care Provider [phone] Source Comments [facility],non-owned Affiliates and Associated Physician Practices is amultiple site organization consisting of ambulatory clinics and hospital sitesin [place] and [place]. This disclosure is being madepursuant to the Care Everywhere program and may not contain all information available regarding this patient. Last updated 18.[facility] Allergies No known active allergies Medications * Be aware that medications may not be up to date on this document. Alwaysverify current medications with the patient. fluticasone propionate (FLONASE) 50 MCG/ACT nasal spray [place] 2 (two) sprays into each nostril once daily 1 g 12/17/2020 Active Social History Tobacco Use Types Packs/Day Years Used Date Smoking Tobacco: Never Smokeless Tobacco: Never Comments Unknown Sex and Gender Information Value Date Recorded Sex Assigned at Not on file Legal Sex Female 5:48 PM MUSIC ARRANGER Gender Identity Not on file Sexual Orientation Not on file Last Filed Vital Signs Vital Sign Reading Time Taken Comments Blood Pressure 98/54 12/17/2020 4:59 PM MUSIC ARRANGER Pulse 66 12/17/2020 4:59 PM MUSIC ARRANGER Temperature 36.4 C (97.6 F) 12/17/2020 4:59 PM MUSIC ARRANGER Respiratory Rate 16 12/17/2020 4:59 PM MUSIC ARRANGER Oxygen Saturation 98% 12/17/2020 4:59 PM MUSIC ARRANGER Inhaled Oxygen Concentration - - Weight 45.4 kg (100 lb) 12/17/2020 4:59 PM MUSIC ARRANGER Height 149.9 cm (4' 11) 12/17/2020 4:59 PM MUSIC ARRANGER Body Mass Index 20.2 12/17/2020 4:59 PM MUSIC ARRANGER Plan of Treatment Health Maintenance Due Date [...] 2003 ZOSTER VACCINE (1 of 2) 2003 DEPRESSION SCREENING 10/29/2024 COVID-19 VACCINE (3 - 2024-2 6 season) 2025 01/19/2021, 12/28/2020 INFLUENZA VACCINE (#1) 2025 , 09/05/2017, 09/03/2014 Respiratory Syncytial Virus (RSV) Vaccine [...] patient's age to complete this topic Insurance [id number] MANAGED MEDICARE ADV Care Teams Online Project Manager Relationship Specialty Start Date End Date Cindi Ortiz MD [address] [place] [address] PCP - General Family Medicine 12/17/20
--- OUTSIDE RECORDS SUMMARY | 2025-08-04 13:28 | XMS_ITS | Clinical Summary ---
Author Organization [facility] Physician Office Building [address] [place] [phone] Care Team Providers Care Acid Changer Name Role Phone Cindi Ortiz MD Primary Care Provider [phone] Allergies No known active allergies Medications levothyroxine sodium (TIROSINT) 25 mcg capsule Take 25 mcg by mouth glass novelty maker before breakfast. 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 Gender Identity Not on file Sexual Orientation [...] of Treatment Not on file Insurance [employer] PPO [facility] MDCR HMO REF [facility] MEDICARE Address: [address] [address] [place] [address] [facility] MEDICARE ADVANTAGE [facility]IC[facility] Address: [address] [address] [place] [address] Advance Directives For more information, please contact: [phone] * Full Code (Latest Code Status on File) Date Activated Date Inactivated Comments 04/15/2019 8:08 AM 04/15/2019 4:35 PM Care Teams Acid Changer Relationship Specialty Start Date End Date Cindi Ortiz MD PCP - General Family Medicine 05/21/17
[2025-08-04 19:07] LABS: Albumin Level 4.0 g/dL (3.5-5.1); Anion Gap 6 mmol/L (4-12); Blood Urea Nitrogen 20 mg/dL (7-17); Calcium 9.9 mg/dL (8.4-10.2); Carbon Dioxide 25 mmol/L (22-30); Chloride 100 mmol/L (98-107); Estimated Glomerular Filt Rate > 60; Glucose 117 mg/dL (65-110); Potassium 4.1 mmol/L (3.4-5.0); Sodium 131 mmol/L (137-145)
[2025-08-04 19:19] LABS: Parathyroid Intact 58.6 pg/mL (14.5-75.2)
[2025-08-04 19:41] LABS: Thyroid Stimulating Hormone 1.940 uIU/mL (0.465-4.680)
[2025-08-05 18:07] LABS: Calcium, Ionized 5.5 mg/dL (4.5-5.6)
== END 2025-08-04 12:43 | disposition home or self-care (01) ==
LOC: ANHGOSHLAB 12:42
PROVIDERS: PCP Family Medicine; Visit Provider Internal Medicine Endocrinology, Diabetes & Metabolism
DX: E03.9 Hypothyroidism, unspecified (principal); M81.0 Age-related osteoporosis without current pathological fracture; R79.89 Other specified abnormal findings of blood chemistry
CPT/HCPCS: 36415; 80069; 82306; 82330; 83970; 84443